=== PATIENT | male | born 1965 | race Caucasian/White ===

== ENCOUNTER 2022-12-14 18:02 | Outpatient (REF) | payer BC, SELFPAY ==
[2022-12-14 20:06] LABS: ESR 19 mm/hr (0-20)
[2022-12-14 20:31] LABS: BUN 27 mg/dL (7-18); CREATININE 1.1 mg/dL (0.70-1.30); Calcium 9.4 mg/dL (8.5-10.1); Calculated LDL 159 mg/dL (<100); Chloride 104 mmol/L (98-107); Cholesterol 248 mg/dL (<200); Glucose 90 mg/dL (74-106); HDL Cholesterol 50 mg/dL (40-60); Sodium 137 mmol/L (136-145); TSH 7.56 uIU/mL (0.36-3.74); Triglyceride 195 mg/dL (<150)
[2022-12-14 20:48] LABS: Uric Acid 4.9 mg/dL (3.5-7.2)
== END 2022-12-14 18:03 | disposition home or self-care (01) ==
LOC: NCHCN 18:02
PROVIDERS: Visit Provider Internal Medicine
DX: I10 Essential (primary) hypertension (principal); M17.11 Unilateral primary osteoarthritis, right knee; M25.561 Pain in right knee
CPT/HCPCS: 80048; 80061; 85652; 84443; 84550; 86140

== ENCOUNTER 2023-03-15 18:27 | Outpatient (REF) | payer BC, SELFPAY ==
[2023-03-15 22:39] LABS: LDL CHOLESTEROL 87 mg/dL (<100); TSH 6.93 uIU/mL (0.36-3.74)
[2023-03-15 23:13] LABS: FREE T4 0.89 ng/dL (0.76-1.46)
== END 2023-03-15 18:28 | disposition home or self-care (01) ==
LOC: NCHCN 18:27
PROVIDERS: Visit Provider Internal Medicine
DX: E78.5 Hyperlipidemia, unspecified (principal); I10 Essential (primary) hypertension; M11.861 Other specified crystal arthropathies, right knee
CPT/HCPCS: 83721; 84439; 84443

== ENCOUNTER 2024-05-16 17:51 | Outpatient (REF) | payer BC, SELFPAY ==
--- OUTSIDE RECORDS SUMMARY | 2024-05-16 17:54 | XMS_ITS | Encounter Summary ---
Author Organization [facility] Address [address] [place] [address] Care Team Providers Care Building Construction Supervisor Name Role Phone None, Provider Primary Care Provider Unavailabl e Reason for Visit * Reason Onset Date Comments DME 07/06/2022 Encounter Details Date Type Department Care Team (Late st Contact Info) Description 07/06/2022 Telephone [facility] [address] [place], [place] [address] Ana Schwartz, Chin [address] [facility], [address] [place] [address] DME Social History Tobacco Use Types Packs/Day Years Used Date Smoking Tobacco: Never Assessed Interpersonal Safety Answer Date Record ed Physically Hurt Never 03/08/2020 Verbally Threaten Not on file 03/08/2020 Sex and Gender Information Value Date Recorded Sex Assigned at Not on file Gender Identity Not on file Sexual Orientation Not on file documented as of this encounter Miscellaneous Notes * Telephone Encounter - Brittani Archuleta - 07/06/2022 1044 EST Called patient to provide number to Cochlear to request new battery. Patient has been scheduled 08/12/22 to see Vilma. * Telephone Encounter - Brittani Archuleta - 07/06/2022 1014 EST Patients sister called to advise his battery is . Please call to discuss. documented in this encounter Plan of Treatment Not on file documented as of this encounter Visit Diagnoses Not on filedocumented in this encounter Care Teams Building Construction Supervisor Relationship Specialty Start Date End Date None, Provider PCP - General 09/23/11 documented as of this encounter
--- OUTSIDE RECORDS SUMMARY | 2024-05-16 17:54 | XMS_ITS | Encounter Summary ---
Author Organization [facility] Address [address] [place] [address] Care Team Providers Care Surgery Center Administrator Name Role Phone None, Provider Primary Care Provider Unavailabl e Reason for Visit * Reason Onset Date Comments Other 10/20/2020 CI Programming Appointment Related 11/13/2020 Encounter Details Date Type Department Care Team (Late st Contact Info) Description 10/20/2020 Telephone [facility] [address], [place] [phone] Ana Schwartz, AuD [address] [facility], [address] [place] [address] Other (CI Programming); Appointment Related Social History Tobacco Use Types Packs/Day Years Used Date Smoking Tobacco: Never Assessed Interpersonal Safety Answer Date Record ed Physically Hurt Never 03/08/2020 Verbally Threaten Not on file 03/08/2020 Sex and Gender Information Value Date Recorded Sex Assigned at Not on file Gender Identity Not on file Sexual Orientation Not on file documented as of this encounter Miscellaneous Notes * Telephone Encounter - Soraida Best - 11/13/2020 1130 EDT Mailed letter to address on file indicating patient being due for an appointment. * Telephone Encounter - Soraida Best - 10/20/2020 1401 EDT LMOM for Natalia (sister) [contact provided by MS] to help set up a follow up appointment for CI Programming (90 min per MS). documented in this encounter Plan of Treatment Not on file documented as of this encounter Visit Diagnoses Not on filedocumented in this encounter Care Teams Surgery Center Administrator Relationship Specialty Start Date End Date None, Provider PCP - General 09/23/11 documented as of this encounter
--- OUTSIDE RECORDS SUMMARY | 2024-05-16 17:54 | XMS_ITS | Encounter Summary ---
Author Organization [facility] Address [address] [place] [address] Care Team Providers Care Laboratory Apparatus Glass Blower Name Role Phone None, Provider Primary Care Provider Unavailabl e Reason for Visit * Reason Onset Date Comments Other 04/28/2022 Cochlear Encounter Details Date Type Department Care Team (Late st Contact Info) Description 04/28/2022 Telephone [facility] [address] [place], [place] [address] Ana Schwartz, AuD [address] [facility], [address] [place] [address] Other (Cochlear) Social History Tobacco Use Types Packs/Day Years Used Date Smoking Tobacco: Never Assessed Interpersonal Safety Answer Date Record ed Physically Hurt Never 03/08/2020 Verbally Threaten Not on file 03/08/2020 Sex and Gender Information Value Date Recorded Sex Assigned at Not on file Gender Identity Not on file Sexual Orientation Not on file documented as of this encounter Miscellaneous Notes * Telephone Encounter - Laurita Hughes - 04/28/2022 1350 EDT Relayed information regarding purchase of a new processor. Requested return call with any questions * Telephone Encounter - Laurita Hughes - 04/28/2022 1044 EDT Pt's sister, Natalia calling as pt would like to purchase a new processor. Sister indicated ENT told patient he would need to wait until Fall 2021 to pursue purchasing due to insurance coverage. Please advise. documented in this encounter Plan of Treatment Not on file documented as of this encounter Visit Diagnoses Not on filedocumented in this encounter Care Teams Laboratory Apparatus Glass Blower Relationship Specialty Start Date End Date None, Provider PCP - General 09/23/11 documented as of this encounter
--- OUTSIDE RECORDS SUMMARY | 2024-05-16 17:54 | XMS_ITS | Continuity of Care Document ---
Author Organization [facility] Address [address] [place] [address] Care Team Providers Care Differential Tester Name Role Phone Bryan Melo Primary Care Physician Encounter [facility] Date(s): 12/27/22 - 12/27/[address] [address] Discharge Disposition: Home or Self Care Attending Physician: Bryan Melo MD Admitting Physician: Bryan Melo MD Referring Physician: Bryan Melo MD Social History Social History Type Response Sex Male Patient Care team information Care Team Personnel Name: Bryan Melo MD Position: No Access Member Role: Informed Provider Address: Address: [address] [address]- [place]
--- OUTSIDE RECORDS SUMMARY | 2024-05-16 17:54 | XMS_ITS | Encounter Summary ---
Author Organization [facility] Address [address] [place] [address] Care Team Providers Care Coder Operator Name Role Phone None, Provider Primary Care Provider Unavailabl e Reason for Visit * Reason Comments Hearing Loss Encounter Details Date Type Department Care Team (Late st Contact Info) Description 08/17/2017 13:00 EST Office Visit [facility] E[facility]- [facility] [address] [place], [place] [address] Ana Schwartz, [facility] [address] [facility], [address] [place] [phone] Sensorineural hearing loss (SNHL), bilateral (Primary Dx) Social History Tobacco Use Types Packs/Day Years Used Date Smoking Tobacco: Never Assessed Sex and Gender Information Value Date Recorded Sex Assigned at Not on file Gender Identity Not on file Sexual Orientation Not on file documented as of this encounter Progress Notes * Aide Winters - 08/17/2017 1300 EST Elian GARNER 1965 [id number] COCHLEAR IMPLANT PROGRAMMING: August 17, 2017 Implant: [employer] Nucleus 22 (SN: [id number]) Ear implanted: right Surgery date: September 25, 1991 N6 upgrade: October 21, 2015 Diagnosis: bilateral severe to profound sensorineural hearing loss (H90.3) Processor: [employer] Nucleus 6 Warranty: expires October 20, 2018 Color: [place] (all) History: Mr. Garner was seen today for follow up programming. He reports a recent intermittent volume fluctuation for the past few weeks. He notes his current MAP needs readjustment, but overall is doing well. Programming: Completed in Custom Sound 5.0 Processing strategy: SPEAK Rate of stimulation: 250 Hz Rochelle: 8 rochelle Stimulation mode: BP + 2 Mapping T- and C-Levels were then measured and balanced, and further adjustments were made in Live Speech mode. This new Map was saved, and placed into 1 program with SCAN. Battery life: 10 hours rechargeable, 14 hours standard Assessment: Pure tone: Sound field testing conducted at zero degrees azimuth with no visual cues revealed appropriate responses to narrow band noise from 500 to 4K Hz (20 - 30dB HL). Speech testing in quiet: Word recognition ability was good (80%) when conducted at 55 dB HL. Mr. Garner was able to identify 10/10 open set spondee words when presented at 50 dB HL. Impression: After mapping of T???s and C???s and adjustments in live speech were made, Mr. Garner reported improved sound quality and clarity of speech. Mr. Garner reports these adjustments are improved compared to his previous MAP. Due to the intermittency in volume fluctuations, a new processor, cable and coil will be ordered under warranty. Mr. Garner is aware someone will need to sign for the package and notes [place] the [facility], his place of work will be best. He is also aware he must send back his current processor, cable and coil when hereceives the new devices. Plan/ follow up: -Process order for new processor, cable and coil to be sent to [place] -Return for follow up programming in 6 months, or sooner if needed Azalia David. Audiology Admin Asst Lenore Carmona Clinical Mortgage Servicing Specialist Cochlear Implant Tool And Fixture Repairer documented in this encounter Plan of Treatment Not on file documented as of this encounter Procedures Procedure Name Priority Date/Time Associated Diagnosis Comments AUDIOGRAM - SCANNED 08/22/2017 9:35 EST documented in this encounter Results * AUDIOGRAM - SCANNED (08/22/2017 9:35 EST) 08/22/2017 9:35 EST Scan 2 Reproduction Technician PROCEDURE/MINOR MARITZA GICAL ORDERABLES documented in this encounter Visit Diagnoses Diagnosis Sensorineural hearing loss (SNHL), bilateral- Primary documented in this encounter Care Teams Coder Operator Relationship Specialty Start Date End Date None, Provider PCP - General 09/23/11 documented as of this encounter
--- OUTSIDE RECORDS SUMMARY | 2024-05-16 17:54 | XMS_ITS | Encounter Summary ---
Author Organization [facility] Address [address] [place] [address] Care Team Providers Care Haz Tech Name Role Phone None, Provider Primary Care Provider Unavailabl e Reason for Visit * Reason Comments Hearing Loss Encounter Details Date Type Department Care Team (Late st Contact Info) Description 08/24/2012 15:00 EST Office Visit [facility] ENT- [address] [phone] Ana Schwartz AuD [address] [facility], [address] 4 [place] [phone] Sensorineural hearing loss, bilateral (Primary Dx) Social History Tobacco Use Types Packs/Day Years Used Date Smoking Tobacco: Never Assessed Sex and Gender Information Value Date Recorded Sex Assigned at Not on file Gender Identity Not on file Sexual Orientation Not on file documented as of this encounter Progress Notes * Ana Schwartz AuD - 08/29/2012 1438 EST ADEN Elian [id number] COCHLEAR IMPLANT PROGRAMMING: August 24, 2012 Implant: [employer] Nucleus 22 (SN: [id number]) Ear implanted: right Surgery date: September 25, 1991 [place] upgrade: September 23, 2011 Diagnosis: bilateral severe to profound sensorineural hearing loss (389.18) Processor: [employer] Nucleus [place] (SN: [id number]) Warranty: expires September 23, 2014 Color: beige History: Mr. Garner reports that he has been doing well with his cochlear implant, and overall is pleased. He had no specific concerns today. Programming: Completed in [employer] Sound 3.2 Processing strategy: SPEAK Rate of stimulation: 250 Hz Rochelle: 8 rochelle Stimulation mode: BP + 2 Mapping: T- and C-Levels were measured and balanced, and further adjustments were made in Live Speech mode. This new Map was saved, and placed into all 4 programs, with P2 and P4 being a noise programs. Battery life: 23 hours disposables with standard controller; 9 hours with rechargeable Follow up: April 17, or sooner if necessary. Lenore Carmona, [facility] Clinical Animal Cruelty Investigation Supervisor Cochlear Implant Program Co-ordinator documented in this encounter Plan of Treatment Not on file documented as of this encounter Visit Diagnoses Diagnosis Sensorineural hearing loss, bilateral- Primary documented in this encounter Care Teams Haz Tech Relationship Specialty Start Date End Date None, Provider PCP - General 09/23/11 documented as of this encounter
--- OUTSIDE RECORDS SUMMARY | 2024-05-16 17:54 | XMS_ITS | Encounter Summary ---
Author Organization [facility] Address [address] [place] [address] Care Team Providers Care Staff Sonographer Name Role Phone None, Provider Primary Care Provider Unavailabl e Reason for Visit * Reason Onset Date Comments Appointment Related 06/29/2022 DME 06/29/2022 Encounter Details Date Type Department Care Team (Late st Contact Info) Description 06/29/2022 Telephone [facility] ENT- Main [place] [address] [place], [place] [phone] Audiology, Schedule Ent Appointment Related; DME Social History Tobacco Use Types Packs/Day [...] * Telephone Encounter - Soraida Best - 06/29/2022 0948 EST LMOM, asked patient to call. CI Programming, Implant Schedule 90 MIN * Telephone Encounter - Soraida Best - 06/29/2022 0948 EST ----- Message from Chin Pena sent at 05/26/2022 15:30 EDT ----- Mr. Garner's N7 sound processor system arrived in clinic. Please reach out to set up 90 min CI Programming. Thank you documented in this encounter Plan of Treatment Not on file documented as of this encounter Visit Diagnoses Not on filedocumented in this encounter Care Teams Staff Sonographer Relationship Specialty Start Date End Date None, Provider PCP - General 09/23/11 documented as of this encounter
--- OUTSIDE RECORDS SUMMARY | 2024-05-16 17:54 | XMS_ITS | Encounter Summary ---
Author Organization [facility] Address [address] [place] [address] Care Team Providers Care Sustainable Design Consultant Name Role Phone None, Provider Primary Care Provider Unavailabl e Reason for Visit * Reason Comments Hearing Loss Encounter Details Date Type Department Care Team (Late st Contact Info) Description 10/11/2022 13:00 EST Office Visit [facility] ENT- Main [address] [phone] Sensory hearing loss, bilateral (Primary Dx) Social History [...] of this encounter Progress Notes * Ana Schwartz, AuD - 10/11/2022 1300 EST Elian GARNER. 1965 [id number] ?? COCHLEAR IMPLANT PROGRAMMING: October 11, 2022 ?? Implant: [employer] Nucleus 22 (SN: [id number]) Ear implanted: Left Surgery date: Sep 25, 1991 Surgeon: Bryan Black M.D. Diagnosis: H90.3 Processor: N7 (SN [id number]) Aug 12, 2022 Warranty: expires Aug 12, 2025 Color: [place] (all) Magnet strength: 3X ?? History: Mr. Garner was seen today for follow up post the programming of his replacement sound processor system that he received in Aug 2022. He has been hearing quite well lately, and he has been pleased thus far with the Nucleus 7 system. There were no specific concerns today. Evaluation: Sound field testing, conducted with no visual cues, revealed appropriate responses to narrow band noise from 500 to 4K Hz (between 20 and 30 dB HL). Word recognition ability was poor (62%) when condcuted at 55 dB HL. [place] Bio sentence recognition ability was fair (68%) when conducted at 55 dB HL. ?? Programming: Completed in [employer] Pro 7.0 Processing strategy: SPEAK Rate of stimulation: 250 Hz Rochelle: 8 Stimulation mode: BP + 2 Mapping: C-Levels were checked and swept. Mapping was not changed today, and the most recent Map created 08/12/22 remains saved to the N8 with an automatic program in P1, and a manual noise program in P2. Mini Finesse 2+ remains paired. Battery life: 10 hours ?? Follow up: Annually, or sooner if necessary. ?? Lenore Carmona Clinical Basketballs And Footballs Reverser Cochlear Implant Slitter Service And Setter documented in this encounter Plan of Treatment Not on file documented as of this encounter Visit Diagnoses Diagnosis Sensory hearing loss, bilateral- Primary documented in this encounter Care Teams Sustainable Design Consultant Relationship Specialty Start Date End Date None, Provider PCP - General 09/23/11 documented as of this encounter
--- OUTSIDE RECORDS SUMMARY | 2024-05-16 17:54 | XMS_ITS | Clinical Summary ---
Author Organization [facility] Address [address] [place] [address] Care Team Providers Care Cellular Phone Repairer Name Role Phone None, Provider Primary Care Provider Unavailabl e Social History Tobacco Use Types Packs/Day Years Used Date Smoking Tobacco: Never Assessed Interpersonal Safety Answer Date Record ed Physically Hurt Never 03/08/2020 Verbally Threaten Not on file 03/08/2020 Sex and Gender Information Value Date Recorded Sex Assigned at Not on file Gender Identity Not on file Sexual Orientation Not on file Plan of Treatment Health Maintenance Due Date Last Done Comments Hepatitis C Screen 1965 Hepatitis B Vaccine (1 of 3 - 19+ 3-dose series) 08/15 COVID-19 Vaccine (2022- season) 2023 Care Teams Cellular Phone Repairer Relationship Specialty Start Date End Date None, Provider PCP - General 09/23/11
--- OUTSIDE RECORDS SUMMARY | 2024-05-16 17:54 | XMS_ITS | Continuity of Care Document ---
Author Organization [facility] Address [address] [place] [address] Care Team Providers Care Electric Knife Operator Name Role Phone Bryan Melo Primary Care Physician Encounter [place] Date(s): 09/15/23 - 09/15/[address] [address] Discharge Disposition: Home or Self Care Attending Physician: Bryan Melo MD Admitting Physician: Bryan Melo MD Referring Physician: Bryan Melo MD Social History Social History Type Response Sex Male Patient Care team information Care Team Personnel Name: Bryan Melo MD Position: No Access Member Role: Informed Provider Address: Address: [address] [address]- [place]
--- OUTSIDE RECORDS SUMMARY | 2024-05-16 17:54 | XMS_ITS | Referral Summary ---
Author Organization [facility] Address [address] [place] [address] Care Team Providers Care Cream Hauler Name Role Phone None, Provider Primary Care [...] Orientation Not on file Plan of Treatment Not on file Care Teams Cream Hauler Relationship Specialty Start Date End Date None, Provider PCP - General 09/23/11
--- OUTSIDE RECORDS SUMMARY | 2024-05-16 17:54 | XMS_ITS | Encounter Summary ---
Author Organization [facility] Address [address] [place] [address] Care Team Providers Care Mechanical Systems Control Engineer Name Role Phone None, Provider Primary Care Provider Unavailabl e Reason for Visit * Reason Comments Hearing Loss Encounter Details Date Type Department Care Team (Late st Contact Info) Description 09/17/2019 14:00 EST Office Visit [facility] ENT- Main [address] [phone] Sensory hearing loss, bilateral (Primary Dx) Social History Tobacco Use Types Packs/Day Years Used Date Smoking Tobacco: Never Assessed Sex and Gender Information Value Date Recorded Sex Assigned at Not on file Gender Identity Not on file Sexual Orientation Not on file documented as of this encounter Progress Notes * Ana Schwartz, Chin - 09/17/2019 1400 EST Elian GARNER. 1965 [id number] COCHLEAR IMPLANT PROGRAMMING: September 17, 2019 Implant: [employer] Nucleus 22 (SN: [id number]) Ear implanted: Right Surgery date: Sep 25, 1991 Surgeon: Bryan Black M.D. N6 upgrade: October 21, 2015 Diagnosis: H90.3 Processor: N6 Warranty: October 20, 2018 Color: [place] (all) Magnet strength: 3X (he also has a 2X) History: Mr. Garner was seen today for follow up programming. He is also in need of 2 replacement rechargeable batteries as his are no longer holding a charge. Overall, Mr. Garner has been hearing wellwith his implant. Programming: Completed in Custom Sound 5.2 Processing strategy: SPEAK Rate of stimulation: 250 Hz Rochelle: 8 Stimulation mode: BP + 2 Mapping: T- and C-Levels were measured and swept. Further adjustments were made in Live Speech mode. This new Map was saved to the N6 with SCAN. Battery life: 8 hours Evaluation: Sound field testing conducted with no visual cues at zero degrees azimuth revealed appropriate responses to narrow band noise from 500 to 4K Hz (between 20 and 25 dB HL). Word recognitionability was good (80%) when conducted at 55 dB HL. [place] Bio sentence recognition ability was poor (88/145 = 61%) when conducted at 55 dB HL. However, this was a new assessment for Mr. Garner, and recorded materials were used. Follow up: 1 year, or sooner if necessary. I will enter a Referral for prior- authorization from [employer] for the replacement batteries, and once obtained, will enter a Requisition for them via Purchasing. When they arrive, I will ship them to Mr. Garner with the appropriate DME paperwork. Lenore Carmona Clinical Digital Research Analyst Cochlear Implant Brush Trimming Machine Setter documented in this encounter Plan of Treatment Not on file documented as of this encounter Visit Diagnoses Diagnosis Sensory hearing loss, bilateral- Primary documented in this encounter Care Teams Mechanical Systems Control Engineer Relationship Specialty Start Date End Date None, Provider PCP - General 09/23/11 documented as of this encounter
--- OUTSIDE RECORDS SUMMARY | 2024-05-16 17:54 | XMS_ITS | Encounter Summary ---
Author Organization [facility] Address [address] [place] [address] Care Team Providers Care Keyboard Operator Name Role Phone None, Provider Primary Care Provider Unavailabl e Reason for Visit * Reason Comments Hearing Loss Encounter Details Date Type Department Care Team (Late st Contact Info) Description 09/23/2011 9:00 EST Office Visit [facility] ENT- [address] [phone] Ana Schwartz AuD [address] [facility], [address] [place] [phone] Sensorineural hearing loss, bilateral (Primary Dx) Social History Tobacco Use Types Packs/Day Years Used Date Smoking Tobacco: Never Assessed Sex and Gender Information Value Date Recorded Sex Assigned at Not on file Gender Identity Not on file Sexual Orientation Not on file documented as of this encounter Progress Notes * Ana Schwartz AuD - 09/23/2011 1047 EST Elian GARNER 1965 [id number] COCHLEAR IMPLANT SOUND PROCESSOR UPGRADE: September 23, 2011 Implant: [employer] Nucleus 22 (SN: [id number]) Ear implanted: right Surgery date: September 25, 1991 Diagnosis: bilateral severe to profound sensorineural hearing loss (389.18) Processor: [employer] Nucleus [place] (SN: [id number]) Warranty: expires September 23, 2014 Color: beige History: Mr. Garner came in today very pleased to be receiving his much needed new equipment. His 3Ghas been in disrepair for quite a while, and he regrets not coming in sooner to address it. Programming: Completed in Custom Sound 3.2 Processing strategy: SPEAK Rate of stimulation: 250 Hz Rochelle: 8 rochelle Stimulation mode: BP + 2 Mapping: Map #61 was converted for use with the [place], and further adjustments were made in Live Speech mode. This new Map was saved, #62, and placed into all 4 programs with traditional pre-processing strategies. Follow up: I reviewed all of Mr. Garner???s new equipment with him today, including care and use of the processor, programs, and battery use. He had a good understanding. Mr. Garner will return for follow up in December or sooner if necessary. Lenore Carmona, [facility] Clinical Adjunct Phlebotomy Instructor Cochlear Implant Program Co-ordinator documented in this encounter Plan of Treatment Not on file documented as of this encounter Procedures Procedure Name Priority Date/Time Associated Diagnosis Comments AUDIOGRAM - SCANNED 09/10/2018 7:28 EST documented in this encounter Results * AUDIOGRAM - SCANNED (09/10/2018 7:28 EST) 09/10/2018 7:28 EST Scan 2 Loader Operator/Ground Leader PROCEDURE/MINOR MARITZA GICAL ORDERABLES documented in this encounter Visit Diagnoses Diagnosis Sensorineural hearing loss, bilateral- Primary documented in this encounter Care Teams Keyboard Operator Relationship Specialty Start Date End Date None, Provider PCP - General 09/23/11 documented as of this encounter
--- OUTSIDE RECORDS SUMMARY | 2024-05-16 17:54 | XMS_ITS | Encounter Summary ---
Author Organization [facility] Address [address] [place] [address] Care Team Providers Care Hepatology Physician Name Role Phone None, Provider Primary Care Provider Unavailabl e Encounter Details Date Type Department Care Team (Late st Contact Info) Description 04/29/2022 Audiology [facility] ENT- [address] [phone] Ana Schwartz AuD [address] [facility], [address] [place] [address] Social History Tobacco Use Types Packs/Day Years [...] Progress Notes * Ana Schwartz AuD - 04/29/2022 1527 EDT Images from the original note were not included. documented in this encounter Plan of Treatment Not on file documented as of this encounter Visit Diagnoses Not on filedocumented in this encounter Care Teams Hepatology Physician Relationship Specialty Start Date End Date None, Provider PCP - General 09/23/11 documented as of this encounter
--- OUTSIDE RECORDS SUMMARY | 2024-05-16 17:54 | XMS_ITS | Encounter Summary ---
Author Organization [facility] Address [address] [place] [address] Care Team Providers Care Cork Painter And Grader Name Role Phone None, Provider Primary Care Provider Unavailabl e Reason for Visit * Reason Onset Date Comments Other 09/21/2021 Cochlear Encounter Details Date Type Department Care Team (Late st Contact Info) Description 09/21/[address] [facility] ENT- [facility] [address] [place], [place] [address] Ana Schwartz, AuD [address] [facility], [address] [place] [address] Other (Cochlear) Social History Tobacco [...] encounter Miscellaneous Notes * Telephone Encounter - Nati Bah - 09/21/2021 1101 EST Pt would like to discuss purchasing a new cochlear. documented in this encounter Plan of Treatment Not on file documented as of this encounter Visit Diagnoses Not on filedocumented in this encounter Care Teams Cork Painter And Grader Relationship Specialty Start Date End Date None, Provider PCP - General 09/23/11 documented as of this encounter
--- OUTSIDE RECORDS SUMMARY | 2024-05-16 17:54 | XMS_ITS | Encounter Summary ---
Author Organization [facility] Address [address] [place] [address] Care Team Providers Care Belt And Link Assembly Supervisor Name Role Phone None, Provider Primary Care Provider Unavailabl e Encounter Details Date Type Department Care Team (Late st Contact Info) Description 05/26/[address] [phone] Ana Schwartz, Chin [address] [facility], [address] [place] [address] Social History Tobacco Use Types [...] Progress Notes * Ana Schwartz, Chin - 05/26/2022 1523 EDT Elian GARNER. 1965 [id number] COCHLEAR IMPLANT EQUIPMENT CHECK-IN: May 26, 2022 Processor: N7 (SN [id number]) in Sand Coil/cables: Nucleus 22 coil/cable, 6 cm, Sand (x2) Magnet: strength 2, in Sand Batteries: N7 standard rechargeable (x3) Accessory: Mini Finesse 2+ SN [id number] Please note: Nucleus 8 TEP is not an option for Nucleus 22 internals. There are no immediate plan for [employer] [place] to work on backward compatibility of N8 to Nucleus 22 implants. Lenore Carmona Clinical Print Press Operator Cochlear Implant Steward/Stewardess Bath documented in this encounter Plan of Treatment Not on file documented as of this encounter Visit Diagnoses Not on filedocumented in this encounter Care Teams Belt And Link Assembly Supervisor Relationship Specialty Start Date End Date None, Provider PCP - General 09/23/11 documented as of this encounter
--- OUTSIDE RECORDS SUMMARY | 2024-05-16 17:54 | XMS_ITS | Encounter Summary ---
Author Organization [facility] Address [address] [place] [address] Care Team Providers Care Lunchroom Worker Name Role Phone None, Provider Primary Care Provider Unavailabl e Reason for Visit * Reason Comments Hearing Loss Encounter Details Date Type Department Care Team (Late st Contact Info) Description 10/21/2015 16:00 EDT Office Visit [facility] ENT- [address] [phone] Ana Schwartz, Chin 111 [facility], [address] [place] [phone] Sensory hearing loss, bilateral (Primary Dx) Social History Tobacco Use Types Packs/Day Years Used Date Smoking Tobacco: Never Assessed Sex and Gender Information Value Date Recorded Sex Assigned at Not on file Gender Identity Not on file Sexual Orientation Not on file documented as of this encounter Progress Notes * Ana Schwartz AuD - 10/27/2015 1411 EDT ADEN Elian 1965 [id number] COCHLEAR IMPLANT PROGRAMMING: October 21, 2015 Implant: [employer] Nucleus 22 (SN: [id number]) Ear implanted: right Surgery date: September 25, 1991 N6 upgrade: October 21, 2015 Diagnosis: bilateral severe to profound sensorineural hearing loss (H90.3) Processor: [employer] Nucleus 6 Warranty: expires October 20, 2018 Color: [place] (all) History: Mr. Garner was seen today for programming of and to receive his new Nucleus 6 sound processor system to replace his malfunctioning and soon-to-be obsolete [place] sound processors system. Programming: Completed in [employer] Sound 4.3 Processing strategy: SPEAK Rate of stimulation: 250 Hz Rochelle: 8 rochelle Stimulation mode: BP + 2 Mapping: Mr. Garner???s current [place] Map was directly converted for use with N6. T- and C-Levels were then measured and balanced, and further adjustments were made in Live Speech mode. This new Mapwas saved, and placed into 1 program with SCAN. Battery life: 11 hours rechargeables Follow up: As needed, and in no more than 6 months from today. Care and use of the N6 were reviewedwith Mr. Garner including powering options and all accompanying accessories. He had a good understanding. He will be in touch with me if he has questions or concerns before I see him in clinic next. Lenore Carmona Clinical Binding Cementer [place] Cord Cochlear Implant Program Co-ordinator documented in this encounter Plan of Treatment Not on file documented as of this encounter Visit Diagnoses Diagnosis Sensory hearing loss, bilateral- Primary documented in this encounter Care Teams Lunchroom Worker Relationship Specialty Start Date End Date None, Provider PCP - General 09/23/11 documented as of this encounter
--- OUTSIDE RECORDS SUMMARY | 2024-05-16 17:54 | XMS_ITS | Encounter Summary ---
Author Organization [facility] Address [address] [place] [address] Care Team Providers Care Bag Making Machine Tender Name Role Phone None, Provider Primary Care Provider Unavailabl e Reason for Visit * Reason Comments Hearing Loss Encounter Details Date Type Department Care Team (Late st Contact Info) Description 08/12/2022 13:00 EST Office Visit [facility] ENT- Main [address] [phone] Sensory hearing loss, bilateral (Primary Dx) Social [...] Progress Notes * Ana Schwartz, AuD - 08/12/2022 1300 EST Elian GARNER. 1965 [id number] ?? COCHLEAR IMPLANT PROGRAMMING: August 12, 2022 ?? Implant: [employer] Nucleus 22 (SN: [id number]) Ear implanted: Left Surgery date: Sep 25, 1991 Surgeon: Bryan Black M.D. Diagnosis: H90.3 Processor: N7 (SN [id number]) Aug 12, 2022 Warranty: expires Aug 12, 2022 Color: [place] (all) Magnet strength: 3X ?? History: Mr. Garner was seen today for the programming of and to receive his replacement sound processor system. His previous sound processor system is now obsolete, and in need of repair. Mr. Garner must have a sound processor system that is supported by the methods analyst in order to continue to havesound. ?? Programming: Completed in [employer] Pro 7.0 Processing strategy: SPEAK Rate of stimulation: 250 Hz Rochelle: 8 Stimulation mode: BP + 2 Mapping: Mr. Garner's most recent Map was directly converted for use with N7. C- Levels were next checked and swept. Further adjustments were made in Live Speech mode. This new Map was saved to the N8 with an automatic program in P1, and a manual noise program in P2. Mini Finesse 2+ was successfully paired, and demonstrated in-office. Care and use of Nucleus 8, including powering, programs, wireless connectivity, and all accompanying accessories were explained to Mr. Garner. He seemed to have a good understanding, and I encouraged him to be in touch with me with any related questions or concerns should they arise before the next scheduled appointment. Battery life: 10 hours ?? Follow up: 6 weeks, or sooner if necessary. Sound field testing to take place at that time. ?? Lenore Carmona Clinical Fabrication Lead Cochlear Implant Customer Service Representative documented in this encounter Plan of Treatment Not on file documented as of this encounter Visit Diagnoses Diagnosis Sensory hearing loss, bilateral- Primary documented in this encounter Care Teams Bag Making Machine Tender Relationship Specialty Start Date End Date None, Provider PCP - General 09/23/11 documented as of this encounter
--- OUTSIDE RECORDS SUMMARY | 2024-05-16 17:54 | XMS_ITS | Encounter Summary ---
Author Organization [facility] Address [address] [place] [address] Care Team Providers Care Vehicle Assembly Inspector Name Role Phone None, Provider Primary Care Provider Unavailabl e Encounter Details Date Type Department Care Team (Late st Contact Info) Description 04/29/2022 Audiology [facility] ENT- [address] [phone] Ana Schwartz AuD [address] [facility], [address] [place] [address] Social History Tobacco Use Types [...] Notes * Ana Schwartz AuD - 04/29/2022 1525 EDT Images from the original note were not included. documented in this encounter Plan of Treatment Not on file documented as of this encounter Visit Diagnoses Not on filedocumented in this encounter Care Teams Vehicle Assembly Inspector Relationship Specialty Start Date End Date None, Provider PCP - General 09/23/11 documented as of this encounter
--- OUTSIDE RECORDS SUMMARY | 2024-05-16 17:54 | XMS_ITS | Encounter Summary ---
Author Organization [facility] Address [address] [place] [address] Care Team Providers Care Glass Sander Belt Name Role Phone None, Provider Primary Care Provider Unavailabl e Encounter Details Date Type Department Care Team (Late st Contact Info) Description 09/20/2019 Documentation Visit [facility] ENT- [address] [phone] Ana Schwartz AuD [address] [facility], [address] [place] [phone] Social History Tobacco Use Types Packs/Day Years Used Date Smoking Tobacco: Never Assessed Sex and Gender Information Value Date Recorded Sex Assigned at Not on file Gender Identity Not on file Sexual Orientation Not on file documented as of this encounter Progress Notes * Ana Schwartz AuD - 09/20/2019 0937 EST Images from the original note were not included. documented in this encounter Plan of Treatment Not on file documented as of this encounter Visit Diagnoses Not on filedocumented in this encounter Care Teams Glass Sander Belt Relationship Specialty Start Date End Date None, Provider PCP - General 09/23/11 documented as of this encounter
--- OUTSIDE RECORDS SUMMARY | 2024-05-16 17:54 | XMS_ITS | Encounter Summary ---
Author Organization [facility] Address [address] [place] [address] Care Team Providers Care Supervisor Heading Name Role Phone None, Provider Primary Care Provider Unavailabl e Encounter Details Date Type Department Care Team (Late st Contact Info) Description 04/29/2022 Audiology [facility] ENT- [address] [phone] Ana Schwartz AuD [address] [facility], [address] [place] [address] Social History Tobacco Use Types [...] Notes * Ana Schwartz AuD - 04/29/2022 1513 EDT Images from the original note were not included. documented in this encounter Plan of Treatment Not on file documented as of this encounter Visit Diagnoses Not on filedocumented in this encounter Care Teams Supervisor Heading Relationship Specialty Start Date End Date None, Provider PCP - General 09/23/11 documented as of this encounter
--- OUTSIDE RECORDS SUMMARY | 2024-05-16 17:54 | XMS_ITS | Encounter Summary ---
Author Organization [facility] Address [address] [place] [address] Care Team Providers Care Rectangular Tank Cooper Name Role Phone None, Provider Primary Care Provider Unavailabl e Encounter Details Date Type Department Care Team (Late st Contact Info) Description 10/08/2019 Documentation Visit [facility] ENT- [address] [phone] Ana Schwartz AuD 111 [facility], Level [address] [place] [address] Sensory hearing loss, bilateral (Primary Dx) Social History Tobacco Use Types Packs/Day Years Used Date Smoking Tobacco: Never Assessed Sex and Gender Information Value Date Recorded Sex Assigned at Not on file Gender Identity Not on file Sexual Orientation Not on file documented as of this encounter Progress Notes * Ana Schwartz AuD - 10/08/2019 1336 EST Images from the original note were not included. documented in this encounter Plan of Treatment Not on file documented as of this encounter Visit Diagnoses Diagnosis Sensory hearing loss, bilateral- Primary documented in this encounter Care Teams Rectangular Tank Cooper Relationship Specialty Start Date End Date None, Provider PCP - General 09/23/11 documented as of this encounter
--- OUTSIDE RECORDS SUMMARY | 2024-05-16 17:54 | XMS_ITS | Encounter Summary ---
Author Organization [facility] Address [address] [place] [address] Care Team Providers Care Shearing Machine Operator Name Role Phone None, Provider Primary Care Provider Unavailabl e Reason for Visit * Reason Onset Date Comments Appointment Related 05/10/2023 Encounter Details Date Type Department Care Team (Late st Contact Info) Description 05/10/2023 Telephone [facility] ENT- [address] [phone] Audiology, Schedule Ent Appointment Related Social History Tobacco Use Types [...] * Telephone Encounter - Soraida Best - 05/10/2023 1234 EDT Left a message for the patient to discuss rescheduling his appointment 05/15 due to staffing and clinic coverage. Asked the patient to return my call, appointment has been cancelled. documented in this encounter Plan of Treatment Not on file documented as of this encounter Visit Diagnoses Not on filedocumented in this encounter Care Teams Shearing Machine Operator Relationship Specialty Start Date End Date None, Provider PCP - General 09/23/11 documented as of this encounter
--- OUTSIDE RECORDS SUMMARY | 2024-05-16 17:54 | XMS_ITS | Encounter Summary ---
Author Organization [facility] Address [address] [place] [address] Care Team Providers Care Yard Pipe Grader Name Role Phone None, Provider Primary Care Provider Unavailabl e Reason for Visit * Reason Comments Hearing Loss Encounter Details Date Type Department Care Team (Late st Contact Info) Description 12/30/2011 14:00 EDT Office Visit [facility] ENT- [address] [phone] Ana Schwartz AuD 111 [facility], Level [address] [place] [phone] Sensorineural hearing loss, bilateral (Primary Dx) Social History Tobacco Use Types Packs/Day Years Used Date Smoking Tobacco: Never Assessed Sex and Gender Information Value Date Recorded Sex Assigned at Not on file Gender Identity Not on file Sexual Orientation Not on file documented as of this encounter Progress Notes * Ana Schwartz AuD - 12/30/2011 1508 EDT Elian GARNER 1965 [id number] COCHLEAR IMPLANT PROGRAMMING: December 30, 2011 Implant: [employer] Nucleus 22 (SN: [id number]) Ear implanted: right Surgery date: September 25, 1991 [place] upgrade: September 23, 2011 Diagnosis: bilateral severe to profound sensorineural hearing loss (389.18) Processor: [employer] Nucleus [place] (SN: [id number]) Warranty: expires September 23, 2014 Color: beige History: Mr. Garner reports that he is very pleased with his new sound processor, and it has been providing him performance improvement. Programming: Completed in [employer] 3.2 Processing strategy: SPEAK Rate of stimulation: 250 Hz Rochelle: 8 rochelle Stimulation mode: BP + 2 Mapping: T- and C-Levels were measured and balanced, and further adjustments were made in Live Speech mode. This new Map was saved, and placed into all 4 programs, with P2 and P4 being a noise programs. Follow up: 6 months or sooner if necessary. Lenore Carmona, [facility] Clinical Hand Lens Polisher Cochlear Implant Program Co-ordinator documented in this encounter Plan of Treatment Not on file documented as of this encounter Visit Diagnoses Diagnosis Sensorineural hearing loss, bilateral- Primary documented in this encounter Care Teams Yard Pipe Grader Relationship Specialty Start Date End Date None, Provider PCP - General 09/23/11 documented as of this encounter
--- OUTSIDE RECORDS SUMMARY | 2024-05-16 17:54 | XMS_ITS | Encounter Summary ---
Author Organization [facility] Address [address] [place] [address] Care Team Providers Care Consumer Lender Name Role Phone None, Provider Primary Care Provider Unavailabl e Encounter Details Date Type Department Care Team (Late st Contact Info) Description 09/23/2019 Documentation Visit [facility] ENT- [address] [phone] Ana Schwartz AuD [address] [facility], [address] [place] [phone] Social History Tobacco Use Types Packs/Day Years Used Date Smoking Tobacco: Never Assessed Sex and Gender Information Value Date Recorded Sex Assigned at Not on file Gender Identity Not on file Sexual Orientation Not on file documented as of this encounter Progress Notes * Ana Schwartz AuD - 09/23/2019 0945 EST Images from the original note were not included. documented in this encounter Plan of Treatment Not on file documented as of this encounter Visit Diagnoses Not on filedocumented in this encounter Care Teams Consumer Lender Relationship Specialty Start Date End Date None, Provider PCP - General 09/23/11 documented as of this encounter
[2024-05-16 19:49] LABS: ALT 33 U/L (16-63); Anion Gap 10.9 mmol/L (3-11); BUN 23 mg/dL (7-18); CO2 25.1 mmol/L (21.0-32.0); Calcium 9.2 mg/dL (8.5-10.1); Calculated LDL 67 mg/dL (<100); Chloride 107 mmol/L (98-107); Cholesterol 135 mg/dL (<200); Estimated GFR 87.24 (mL/min/1.73m2); Glucose 91 mg/dL (74-106); HDL Cholesterol 46 mg/dL (40-60); Potassium 4.3 mmol/L (3.5-5.1); Sodium 143 mmol/L (136-145); TSH 5.02 uIU/Ml (0.36-3.74); Triglyceride 112 mg/dL (<150)
[2024-05-16 20:08] LABS: Creatine Kinase 266 U/L (39-308); FREE T4 0.93 ng/dL (0.76-1.46)
== END 2024-05-16 17:52 | disposition home or self-care (01) ==
LOC: NCHCN 17:51
PROVIDERS: Visit Provider Internal Medicine
DX: R94.6 Abnormal results of thyroid function studies (principal); I10 Essential (primary) hypertension
CPT/HCPCS: 80048; 80061; 82550; 84439; 84443; 84460

== ENCOUNTER 2025-02-11 03:22 | Outpatient (CLI) | payer OTHER, SELFPAY ==
--- NOTE | 2025-02-11 15:54 | PDOC.EEG ---
Neurology EEG EEG: [facility] Department of Neurology EEG REPORT Date of Recordin02/11/25 Interpreting Physician: Dr. Jessi Siddiqui PCP/Referring Provider: Dr. Bryan Gonzales Reason for study: Mr. Garner is a 59 year-old with recent spell with LOC, concerning for seizure. He has a cochlear implant. Current Medications: Home Medications ?Medication ?Instructions ?Recorded ?Confirmed ?Type atorvastatin 20 mg tablet 20 mg PO QHS 01/08/25 01/29/25 History losartan 50 mg tablet 50 mg PO DAILY 01/08/25 01/29/25 History METHODS: A 21 channel digitized electroencephalogram was performed in the [facility] Clinical Neurophysiology Laboratory. The 10/20 international system of electrode placement was used and bipolar and referential electrode montages were recorded. In addition to EEG the patient was monitored for EKG and lateral/vertical eye movements. Activation procedures of photic stimulation and hyperventilation were performed if applicable. Video was used during activation procedures and during events where applicable. The duration of the recording was 30 minutes. DESCRIPTION OF EEG: The patient was noted to be awake, drowsy, and asleep during the recording. During maximal wakefulness a 10-Hz posterior background rhythm was present which was well-modulated, symmetrical, reactive to eye opening, and of moderate voltage. With eye opening the background activity changed to a low voltage mixture of alpha, beta, and occasional theta range frequencies. Faster frequencies were present in the bilateral anterior head regions. There was a normal anterior-posterior voltage gradient. During drowsiness, there was attenuation of the posterior dominant background rhythm and vertex waves. Stage II sleep was present with symmetrical sleep spindles, K-complexes, and vertex waves. During sleep, there was a 10 second burst of moderate amplitude, posterior predominant, semi-rhythmic theta (6-7Hz). Activating Procedures: Photic stimulation was performed which produced a posterior driving response at various flash frequencies bilaterally, though at times with less response on the left. Hyperventilation was performed with moderate effort and produced no physiological slowing of the background. EKG: EKG revealed normal sinus rhythm. INTERPRETATION: This EEG is normal during the awake and sleep states as well as during photic stimulation and hyperventilation. The above mentioned findings including symmetrical semi-rhythmic theta and slightly less symmetric but still present bilateral photic stimulation, were not clearly abnormal. PRIOR EEG: none CLINICAL CORRELATION: No focal regions of cerebral dysfunction or epileptiform activity was present. Epilepsy remains a clinical diagnosis and a normal EEG does not rule out epilepsy. Clinical correlation is advised. Jessi Siddiqui MD Date of service: 02/11/25
== END 2025-02-11 03:23 | disposition home or self-care (01) ==
LOC: RT 03:22
PROVIDERS: PCP Internal Medicine; Visit Provider Psychiatry & Neurology Neurology
DX: R40.4 Transient alteration of awareness (principal)
CPT/HCPCS: 95819

== ENCOUNTER 2025-05-27 14:44 | Outpatient (REF) | payer OTHER, SELFPAY ==
[2025-05-27 20:35] LABS: ALT 30 U/L (16-63); AST 18 U/L (15-37); Albumin 3.7 g/dL (3.4-5.0); Alkaline Phosphatase 63 U/L (46-116); Anion Gap 7.2 mmol/L (3-11); BUN 17 mg/dL (7-18); Bilirubin, Total 0.3 mg/dL (0.2-1.0); CO2 27.8 mmol/L (21.0-32.0); Calcium 8.8 mg/dL (8.5-10.1); Chloride 105 mmol/L (98-107); Estimated GFR 98.38 (mL/min/1.73m2); Glucose 89 mg/dL (74-106); Potassium 3.9 mmol/L (3.5-5.1); Sodium 140 mmol/L (136-145); TSH (W/Ref FT4) 2.33 uIU/mL (0.36-3.74); Total Protein 7.6 g/dL (6.4-8.2)
== END 2025-05-27 14:45 | disposition home or self-care (01) ==
LOC: NCHCN 14:44
PROVIDERS: PCP Internal Medicine; Visit Provider Physician Assistant
DX: E78.5 Hyperlipidemia, unspecified (principal); R94.6 Abnormal results of thyroid function studies
CPT/HCPCS: 80053; 84443